=== PATIENT | female | born 1995 | race Hispanic/Latino ===

== ENCOUNTER 2018-01-14 19:56 | Emergency (ER) | payer MEDICAID ==
[2018-01-14 21:16] LABS: Basophils % (Auto) 0.6 % (0.0-1.8); Eosinophils % (Auto) 0.7 % (0.0-4.3); Hematocrit 34.7 % (30.3-42.9); Hemoglobin 11.7 gm/dl (10.1-14.3); Lymphocytes # (Auto) 1.4 K/mm3 (1.2-5.4); Lymphocytes % (Auto) 26.2 % (13.4-35.0); Mean Corpuscular HGB Conc 34 % (30-34); Mean Corpuscular Hemoglobin 29 pg (28-32); Mean Corpuscular Volume 85 fl (79-97); Monocytes # (Auto) 0.6 K/mm3 (0.0-0.8); Monocytes % (Auto) 10.1 % (0.0-7.3); Platelet Count 295 K/mm3 (140-440); Red Blood Count 4.07 M/mm3 (3.65-5.03); Red Cell Distribution Width 13.5 % (13.2-15.2)
[2018-01-14 21:20] LABS: Bacteria,Urine 4+ /HPF (Negative); Bilirubin,Urine NEG (Negative); Blood,Urine NEG (Negative); Color,Urine Amber (Yellow); Mucus,Urine 1+ /HPF
[2018-01-14 21:25] LABS: HCG Qualitative,Urine Positive (Negative)
[2018-01-14 21:28] LABS: Alanine Aminotransferase 94 units/L (7-56); Albumin 3.7 g/dL (3.9-5); BUN/Creatinine Ratio 10; Blood Urea Nitrogen 4 mg/dL (7-17); Calcium 9.6 mg/dL (8.4-10.2); Hemolysis Index 25
[2018-01-14 21:39] VITALS: BP 102/54
[2018-01-14] MEDS ORDERED: KEFLEX PO ONE (21:47)
[2018-01-14] MEDS ORDERED: TYLENOL PO ONE (21:47)
[2018-01-14] MEDS ORDERED: ROCEPHIN/NS 2 GM/100 ML 2 GM/100 ML BAG IV ONE (21:49)
--- NOTE | 2018-01-14 21:52 | Emergency Department Report ---
ED Abdominal Pain HPI - General Chief Complaint: Abdominal Pain Stated Complaint: RT FLANK PAIN Time Seen by Provider: 01/14/18 20:58 Source: patient Mode of arrival: Ambulatory Limitations: No Limitations - History of Present Illness Initial Comments: Nohemy is 22 yo female who is 14 weeks TRINA August [birth year], 2016. Right flank pain dull about radiation. 8 out of 10 in severity. Worse with movement. Patient unable to lay on that side is tender. She had similar symptoms with her previous . She had a kidney infection at the time. However she was more ill at that time. She had fever and chills. Now she just has non-radiating dull right flank pain. MD Complaint: flank pain -: Gradual, days(s) (2) Radiation: none Severity: moderate Severity scale (0 -10): 8 Quality: dull Worsens With: movement - Related Data Previous Rx's Medication Instructions Recorded Last Taken Type Cephalexin [Keflex] 500 mg PO Q6HR 10 Days #40 capsule 01/14/18 Unknown Rx Allergies Allergy/AdvReac Type Severity Reaction Status Date / Time No Known Allergies Allergy Verified 01/14/18 21:50 ED Review of Systems ROS: Stated complaint: RT FLANK PAIN Other details as noted in HPI Comment: All other systems reviewed and negative Constitutional: denies: fever, malaise Respiratory: denies: cough Cardiovascular: denies: chest pain ED Past Medical Hx - Past Medical History Previous Medical History?: No - Surgical History Past Surgical History?: Yes Additional Surgical History: C/S - Social History Smoking Status: Never Smoker Substance Use Type: None - Medications Home Medications: Home Medications Medication Instructions Recorded Confirmed Last Taken Type Cephalexin [Keflex] 500 mg PO Q6HR 10 Days #40 capsule 01/14/18 Unknown Rx ED Physical Exam - General Limitations: No Limitations General appearance: alert, in no apparent distress - Head Head exam: Present: atraumatic, normocephalic - Eye Eye exam: Present: normal appearance - ENT ENT exam: Present: mucous membranes moist - Neck Neck exam: Present: normal inspection. Absent: tenderness, meningismus - Respiratory Respiratory exam: Present: normal lung sounds bilaterally. Absent: respiratory distress, wheezes, rales, rhonchi - Cardiovascular Cardiovascular Exam: Present: regular rate, normal rhythm, normal heart sounds. Absent: bradycardia, tachycardia, systolic murmur, diastolic murmur, rubs, gallop - GI/Abdominal GI/Abdominal exam: Present: soft, normal bowel sounds. Absent: distended, tenderness, guarding, rebound - Extremities Exam Extremities exam: Present: normal inspection - Back Exam Back exam: Present: normal inspection, CVA tenderness (R) - Neurological Exam Neurological exam: Present: alert, oriented X3 - Psychiatric Psychiatric exam: Present: normal affect, normal mood - Skin Skin exam: Present: warm, dry, intact, normal color. Absent: rash ED Course Vital Signs 01/14/18 01/14/18 20:23 21:15 Temperature 98.2 F 98.2 F Pulse Rate 98 H 80 Respiratory 12 16 Rate Blood Pressure 100/61 Blood Pressure 102/54 [Right] O2 Sat by Pulse 100 98 Oximetry ED Medical Decision Making - Lab Data Result diagrams: 01/14/18 20:38 01/14/18 20:38 Vital Signs - 24 hr 01/14/18 01/14/18 20:23 21:15 Temperature 98.2 F 98.2 F Pulse Rate 98 H 80 Respiratory 12 16 Rate Blood Pressure 100/61 Blood Pressure 102/54 [Right] O2 Sat by Pulse 100 98 Oximetry Laboratory Results - last 24 hr 01/14/18 01/14/18 01/14/18 20:38 20:38 20:38 WBC 5.5 RBC 4.07 Hgb 11.7 Hct 34.7 MCV 85 MCH 29 MCHC 34 RDW 13.5 Plt Count 295 Lymph % (Auto) 26.2 Price % (Auto) 10.1 H Eos % (Auto) 0.7 Baso % (Auto) 0.6 Lymph # 1.4 Price # 0.6 Eos # 0.0 Baso # 0.0 Seg Neutrophils % 62.4 Seg Neutrophils # 3.4 Sodium 138 Potassium 3.8 Chloride 98.1 Carbon Dioxide 26 Anion Gap 18 BUN 4 L Creatinine 0.4 L Estimated GFR > 60 BUN/Creatinine Ratio 10 Glucose 88 Calcium 9.6 Total Bilirubin 0.40 AST 129 H ALT 94 H Alkaline Phosphatase 123 Total Protein 7.6 Albumin 3.7 L Albumin/Globulin Ratio 0.9 HCG, Quant 24140 H Urine Color Urine Turbidity Urine pH Ur Specific [place] Urine Protein Urine Glucose (UA) Urine Ketones Urine Blood Urine Nitrite Urine Bilirubin Urine Urobilinogen Ur Leukocyte Esterase Urine WBC (Auto) Urine RBC (Auto) U Epithel Cells (Auto) Urine Bacteria (Auto) Urine WBC Clumps Urine Mucus Urine HCG, Qual 01/14/18 20:43 WBC RBC Hgb Hct MCV MCH MCHC RDW Plt Count Lymph % (Auto) Price % (Auto) Eos % (Auto) Baso % (Auto) Lymph # Price # Eos # Baso # Seg Neutrophils % Seg Neutrophils # Sodium Potassium Chloride Carbon Dioxide Anion Gap BUN Creatinine Estimated GFR BUN/Creatinine Ratio Glucose Calcium Total Bilirubin AST ALT Alkaline Phosphatase Total Protein Albumin Albumin/Globulin Ratio HCG, Quant Urine Color [place] Urine Turbidity Clear Urine pH 6.0 Ur Specific [place] 1.016 Urine Protein 30 mg/dl Urine Glucose (UA) Neg Urine Ketones Tr Urine Blood Neg Urine Nitrite Neg Urine Bilirubin Neg Urine Urobilinogen 4.0 Ur Leukocyte Esterase Lg Urine WBC (Auto) 93.0 H Urine RBC (Auto) 8.0 U Epithel Cells (Auto) 5.0 Urine Bacteria (Auto) 4+ Urine WBC Clumps 2+ Urine Mucus 1+ Urine HCG, Qual Positive A Vital Signs - 8 hr 01/14/18 01/14/18 20:23 21:15 Temperature 98.2 F 98.2 F Pulse Rate 98 H 80 Respiratory 12 16 Rate Blood Pressure 100/61 Blood Pressure 102/54 [Right] O2 Sat by Pulse 100 98 Oximetry - Medical Decision Making Nohemy presents with pyelonephritis, first dose of ceftriaxone ordered. Prescribed Keflex Nurse informed me that Nohemy eloped before she received antibiotics or prescription. Critical care attestation.: If time is entered above; I have spent that time in minutes in the direct care of this critically ill patient, excluding procedure time. ED Disposition Clinical Impression: Acute pyelonephritis, Disposition: Z- [id number] Is pt being admited?: No Does the pt Need Aspirin: No Condition: Stable Instructions: Acute Pyelonephritis (ED) Prescriptions: Cephalexin [Keflex] 500 mg PO Q6HR 10 Days #40 capsule Referrals: JONATAN BUTCHER MD [Staff Physician] - 3-5 Days Time of Disposition: 21:57
== END 2018-01-14 23:21 | disposition left against medical advice (07) ==
LOC: ED 19:56
DX: O23.02 Infections of kidney in pregnancy, second trimester (principal); Z3A.14 14 weeks gestation of pregnancy
CPT/HCPCS: 36415; 80053; 81001; 81025; 84702; 85025; 99283; J0696